=== PATIENT | male | born 1990 | race Hispanic/Latino ===

== ENCOUNTER 2017-08-29 04:17 | Emergency (ER) | payer SELFPAY ==
[2017-08-29 05:26] LABS: Absolute Lymphocytes (CBC) 0.8 K/uL (0.7-4.9); Absolute Monocytes 0.6 K/uL (0.1-1.3); Absolute Neutrophil 10.1 K/uL (1.8-8.0); Basophils % 0.3 % (0-1.3); Eosinophils % 0.6 % (0-4.4); Hematocrit 45.7 % (39.6-49.0); MCH 30.4 pg (27.0-35.0); MCV 90.7 fL (80-100); MPV 8.6 fL (7.6-11.3); Monocytes % 4.8 % (3.3-12.3); RBC Red Blood Cell Count 5.03 M/uL (4.33-5.43)
[2017-08-29] MEDS ORDERED: ONDANSETRON 4 MG/2 ML VIAL ONE (05:35)
[2017-08-29 05:39] LABS: Bicarbonate 23 mEq/L (21-31); Glucose Level 123 mg/dL (65-120); Lipase 28 U/L (22-51); Sodium Level 138 mEq/L (135-145)
[2017-08-29 05:45] LABS: ALT/SGPT 44 IU/L (10-60); AST/SGOT 43 IU/L (10-42); Albumin 4.6 g/dL (3.2-5.5); Alkaline Phosphatase 116 IU/L (42-121); Amylase Level 95 U/L (28-100); BUN Blood Urea Nitrogen 16 mg/dL (6-20); Bilirubin Direct 0.1 mg/dL (0-0.2); Bilirubin Total 0.8 mg/dL (0.3-1.2); Protein, Total 8.3 g/dL (6.0-8.3)
[2017-08-29] MEDS ORDERED: NA CHLORIDE 0.9% 1,000 ML ONE (06:27)
[2017-08-29] MEDS ORDERED: DICYCLOMINE HCL 10 MG CAP ONE (06:27)
[2017-08-29 06:46] LABS: Blood Morphology Comment NOT SEEN (NOT SEEN); Platelet Estimate ADEQ
[2017-08-29 08:03] LABS: Urine Bacteria <20 /HPF (NONE SEEN); Urine Culture Reflex Order NOT NEEDED; Urine RBC <5 /HPF (NONE SEEN)
[2017-08-29 08:04] LABS: Urine Blood NEGATIVE (NEG); Urine Glucose NEGATIVE (NEG); Urine Protein NEGATIVE (NEG); Urine Specific Gravity 1.025 (1.005-1.030); Urine pH 5.5 (5.0-7.0)
--- NOTE | 2017-08-29 09:07 | RAD REPORT ---
EXAM DESCRIPTION: CT - Abdomen Pelvis W Contrast - 08/29/2017 8:59 am CLINICAL HISTORY: Abdominal pain, epigastric pain, diarrhea and vomiting COMPARISON: None. TECHNIQUE: Biphasic, helical CT imaging of the abdomen and pelvis was performed following 100 ml non -ionic IV contrast. Oral contrast was given. All CT scans are performed using dose optimization technique as appropriate and may include automated exposure control or mA/KV adjustment according to patient size. FINDINGS: No suspicious findings in the lung bases. No focal liver abnormality. Liver shows a mild diffuse fatty infiltration. Spleen and pancreas show n o suspicious findings. Gallbladder and biliary tree are also without suspicious finding. Symmetric renal function is seen with no hydronephrosis or suspicious renal mass. No pyelonephritis o r acute renal parenchymal process. Partially filled urinary bladder shows no suspicious findings. Pro state gland and seminal vesicles are normal range. No adrenal abnormality. Stomach is well filled by the ingested oral contrast. Small amount of contrast in the esophagus could be reflux. A primary or acute GI process is not suspected. Most of the oral contrast is retained wit hin the stomach. There is contrast throughout the small bowel and colon that is diluted by bowel cont ent. Prominent small bowel loops are present primarily in the jejunum. No focal colon process seen. A few small nonspecific mesenteric lymph nodes are seen. No free air, free fluid or inflammatory stranding. No mass or bulky lymphadenopathy. No omental thic kening. Patient has a very small umbilical hernia and a minimal amount of fat extending into each ing uinal canal. No suspicious bony findings. IMPRESSION: Mild small bowel enteritis pattern. No obstruction, free air or surgically emergent find ing. Mild fatty infiltration of the liver.
--- NOTE | 2017-08-29 09:46 | EDPHYS ---
Physician Documentation [facility] Name: Young Hernandez Jr Age: 27 yrs Sex: Male : 1990 Arrival Date: 08/29/2017 Time: 04:19 Bed 13 Private MD: ED Physician Surendra Hankins HPI: 08/29 06:30 This 27 yrs old Male presents to ER via Ambulatory with complaints of cp Vomiting/Diarrhea. Historical: - Allergies: 04:49 No Known Allergies; ea - Home Meds: 04:49 Nexium Oral [Active]; ea - PMHx: 04:49 None; ea - PSHx: 04:49 surgery on right wrist; ea - Immunization history:: Adult Immunizations up to date. - Social history:: Smoking status: Patient uses tobacco products, denies chronic smoking, but will smoke occasionally. - Ebola Screening: : No symptoms or risks identified at this time. Exam: 06:25 ECG was reviewed by the Attending Physician. cp 06:40 Constitutional: The patient appears in no acute distress, alert, awake, non-toxic, well cp developed, well nourished. 06:40 Head/Face: Normocephalic, atraumatic. cp Vital Signs: 04:29 BP 135 / 84; Pulse 85; Resp 18 S; Temp 97.6(O); Pulse Ox 97% on R/A; Weight 90.72 kg; ea Height 5 ft. 7 in. (170.18 cm); Pain 0/10; 05:57 BP 122 / 82; Pulse 74; Resp 18; Pulse Ox 98% on R/A; Pain 9/10; ea 06:50 BP 122 / 80; Pulse 79; Resp 19; Pulse Ox 99% on R/A; mw2 09:00 BP 117 / 65; Pulse 64; Resp 18; Pulse Ox 100% on R/A; ae1 10:00 BP 125 / 86; Pulse 72; Resp 18; Pulse Ox 100% on R/A; ae1 04:29 Body Mass Index 31.32 (90.72 kg, 170.18 cm) ea MDM: 05:04 Patient medically screened. tw4 08/29 05:00 Order name: Amylase, Serum; Complete Time: 06:24 tw4 08/29 05:00 Order name: Basic Metabolic Panel; Complete Time: 06:24 tw4 08/29 06:24 Interpretation: Normal except: GLUC 123. cp 08/29 05:00 Order name: CBC with Diff; Complete Time: 06:57 tw4 08/29 06:25 Interpretation: Normal except: WBC 11.5; MICHELE% 87.3; LYM% 7.0; NEUT A 10.1. cp 08/29 05:00 Order name: Creatinine for Radiology; Complete Time: 06:24 tw4 08/29 05:00 Order name: Hepatic Function; Complete Time: 06:24 tw4 08/29 06:25 Interpretation: Normal except: SGOT 43; GLOB 3.7. cp 08/29 05:00 Order name: Lipase; Complete Time: 06:24 tw4 08/29 05:00 Order name: Urine Microscopic Only; Complete Time: 09:11 tw4 08/29 05:34 Order name: Manual Differential; Complete Time: 06:57 EDMS 08/29 06:26 Order name: CT Abd/Pelvis - W/Contrast; Complete Time: 09:11 cp 08/29 07:43 Order name: Urine Dipstick--Ancillary (enter results) bd 08/29 07:43 Order name: Urine Dipstick-Ancillary; Complete Time: 09:11 EDMS 08/29 05:00 Order name: IV Saline Lock; Complete Time: 05:11 tw4 08/29 05:00 Order name: Labs collected and sent; Complete Time: 05:43 tw4 08/29 05:00 Order name: Urine Dipstick-Ancillary (obtain specimen); Complete Time: 07:43 tw4 08/29 08:01 Order name: EKG Electrocardiogram EDMS 08/29 09:12 Order name: PO challenge; Complete Time: 09:42 cp EC:25 Rate is 76 beats/min. Rhythm is regular. NH interval is normal. QRS interval is normal. cp QT interval is normal. T waves are Inverted in lead III. Interpreted by me. Reviewed by me. Administered Medications: 05:39 Drug: Zofran 4 mg Route: IVP; Site: right antecubital; ea 06:29 Follow up: Response: No adverse reaction; Marked relief of symptoms ea 06:29 Drug: NS 0.9% 1000 ml Route: IV; Rate: 1 bolus; Site: right antecubital; ea 07:15 Follow up: IV Status: Completed infusion ae1 06:29 Drug: Bentyl 20 mg Route: PO; ea 07:15 Follow up: Response: Pain is decreased ae1 Disposition: 08/29/17 09:46 Discharged to Home. Impression: Nausea and vomiting, Diarrhea, unspecified. - Condition is Stable. - Discharge Instructions: Food Choices to Help Relieve Diarrhea, Adult, Diarrhea, Nausea and Vomiting. - Prescriptions for Bentyl 20 mg Oral Tablet - take 2 tablets by ORAL route every 6 hours As needed; 30 tablet. Zofran 4 mg Oral Tablet - take 1 tablet by ORAL route every 12 hours As needed; 20 tablet. - Medication Reconciliation Form, Thank You Letter, Antibiotic Education, Prescription Opioid Use, Work release form, Family Work Release form. - Follow up: Private Physician; When: 2 - 3 days; Reason: Recheck today's complaints. - Problem is new. - Symptoms have improved. Addendum: 08/30/2017 22:52 Co-signature as Attending Physician, Surendra Hankins MD I agree with the assessment and t w4 plan of care. Signatures: Dispatcher [employer] EDMS Randy Rossi PA PA cp Romeo Oliver RN RN ae1 Beverly Ferreira RN RN Surendra Rivas MD MD tw4 Corrections: (The following items were deleted from the chart) 08/29 10:02 09:46 08/29/2017 09:46 Discharged to Home. Impression: Nausea and vomiting; Diarrhea, ae1 unspecified. Condition is Stable. Forms are Medication Reconciliation Form, Thank You Letter, Antibiotic Education, Prescription Opioid Use. Follow up: Private Physician; When: 2 - 3 days; Reason: Recheck today's complaints. Problem is new. Symptoms have improved. cp
--- NOTE | 2017-08-29 09:46 | ER ---
Nurse's Notes [facility] Name: Young Hernandez Jr Age: 27 yrs Sex: Male : 1990 Arrival Date: 08/29/2017 Time: 04:19 Bed 13 Private MD: Diagnosis: Nausea and vomiting;Diarrhea, unspecified Presentation: 08/29 04:39 Presenting complaint: Patient states: Reports he woke at 1 am cramping, epigastric, ea having diarrhea and vomiting. Pt reports he is not able to tolerate food or drink. Transition of care: patient was not received from another setting of care. Onset of symptoms was August 29, 2017. Risk Assessment: Do you want to hurt yourself or someone else? Patient reports no desire to harm self or others. Initial Sepsis Screen: Does the patient meet any 2 criteria? No. Patient's initial sepsis screen is negative. Does the patient have a suspected source of infection? No. Patient's initial sepsis screen is negative. Care prior to arrival: None. 04:39 Method Of Arrival: Ambulatory ea 04:39 Acuity: MARELY 3 ea Triage Assessment: 04:49 General: Appears. General: Behavior is calm, cooperative, appropriate for age. Pain: ea Complains of pain in epigastric area Pain radiates to right upper quadrant and left upper quadrant Pain currently is 7 out of 10 on a pain scale. EENT: No signs and/or symptoms were reported regarding the EENT system. Neuro: Level of Consciousness is awake, alert, obeys commands, Oriented to person, place, time, situation. Cardiovascular: Patient's skin is warm and dry. Respiratory: Airway is patent Respiratory effort is even, unlabored, Respiratory pattern is regular, symmetrical. GI: Abdomen is non-distended, Bowel sounds present X 4 quads. Abd is soft X 4 quads Abdomen is tender to palpation in epigastric area Reports diarrhea, vomiting, since 1 am. : No signs and/or symptoms were reported regarding the genitourinary system. Derm: Skin is pink, warm \T\ dry. Musculoskeletal: No signs and/or symptoms reported regarding the musculoskeletal system. Historical: - Allergies: 04:49 No Known Allergies; ea - Home Meds: 04:49 Nexium Oral [Active]; ea - PMHx: 04:49 None; ea - PSHx: 04:49 surgery on right wrist; ea - Immunization history:: Adult Immunizations up to date. - Social history:: Smoking status: Patient uses tobacco products, denies chronic smoking, but will smoke occasionally. - Ebola Screening: : No symptoms or risks identified at this time. Screenin:53 Abuse screen: Denies threats or abuse. Nutritional screening: No deficits noted. ea Tuberculosis screening: No symptoms or risk factors identified. Fall Risk None identified. Assessment: 05:58 Reassessment: Patient and/or family updated on plan of care and expected duration. Pain ea level reassessed. Patient is alert, oriented x 3, equal unlabored respirations, skin warm/dry/pink. Pt complaining of abd pain, reports it feels like cramping in his abdomen, pain 9/10, physician notified, no new orders obtained at this time. 06:46 Reassessment: Patient and/or family updated on plan of care and expected duration. Pain ea level reassessed. Patient is alert, oriented x 3, equal unlabored respirations, skin warm/dry/pink. Pt reports nausea medication helped with symptoms. Tolerated PO fluids well. 07:11 Reassessment: Patient appears in no apparent distress at this time. Patient and/or ae1 family updated on plan of care and expected duration. Pain level reassessed. Encouraged patient to continue drinking PO contrast, provided patient teaching on wait time to got to CT after completion of PO contrast. Also encouraged to provide urine sample, patient states he is unable to urinate at this time. Patient verbalized understanding. 07:23 Reassessment: Patient completed PO contrast, CT notified via telephone. ae1 09:42 Reassessment: Provider at bedside discussing plan of care. PO fluids provided. ae1 Vital Signs: 04:29 BP 135 / 84; Pulse 85; Resp 18 S; Temp 97.6(O); Pulse Ox 97% on R/A; Weight 90.72 kg; ea Height 5 ft. 7 in. (170.18 cm); Pain 0/10; 05:57 BP 122 / 82; Pulse 74; Resp 18; Pulse Ox 98% on R/A; Pain 9/10; ea 06:50 BP 122 / 80; Pulse 79; Resp 19; Pulse Ox 99% on R/A; mw2 09:00 BP 117 / 65; Pulse 64; Resp 18; Pulse Ox 100% on R/A; ae1 10:00 BP 125 / 86; Pulse 72; Resp 18; Pulse Ox 100% on R/A; ae1 04:29 Body Mass Index 31.32 (90.72 kg, 170.18 cm) ea ED Course: 04:19 Patient arrived in ED. ds1 04:35 Beverly Ferreira, PRASHANTH is Primary Nurse. ea 04:39 Patient has correct armband on for positive identification. Placed in gown. Bed in low ea position. Call light in reach. Side rails up X 1. 04:39 Arm band placed on right wrist. Patient placed in an exam room, on a stretcher, on ea pulse oximetry. 04:48 Triage completed. ea 04:59 Surendra Hankins MD is Attending Physician. tw4 06:13 Randy Rossi PA is PHCP. cp 06:13 Surendra Hankins MD is Attending Physician. cp 08:[address] via wheelchair. nj 08:59 CT completed. Patient tolerated procedure well. Patient moved back from CT. nj 08:59 CT Abd/Pelvis - W/Contrast In Process Unspecified. EDMS 10:00 No provider procedures requiring assistance completed. IV discontinued, intact, ae1 bleeding controlled, No redness/swelling at site. Pressure dressing applied. Administered Medications: 05:39 Drug: Zofran 4 mg Route: IVP; Site: right antecubital; ea 06:29 Follow up: Response: No adverse reaction; Marked relief of symptoms ea 06:29 Drug: NS 0.9% 1000 ml Route: IV; Rate: 1 bolus; Site: right antecubital; ea 07:15 Follow up: IV Status: Completed infusion ae1 06:29 Drug: Bentyl 20 mg Route: PO; ea 07:15 Follow up: Response: Pain is decreased ae1 Outcome: 09:46 Discharge ordered by . cp 10:00 Discharged to home ambulatory, with significant other. ae1 10:00 Condition: stable 10:00 Discharge instructions given to patient, Instructed on discharge instructions, follow up and referral plans. medication usage, Demonstrated understanding of instructions, Prescriptions given X 2. 10:02 Patient left the ED. ae1 Signatures: Dispatcher [employer] EDMT DaltonCheli carmen ds1 Randy Rossi PA PA cp Elliott, Andrea, RN RN ae1 [place] Elena RN RN Surendra Rivas MD MD tw4 Karyn Cavanaugh mw2 Corrections: (The following items were deleted from the chart) 06:47 06:46 Reassessment: Patient and/or family updated on plan of care and expected ea duration. Pain level reassessed. Patient is alert, oriented x 3, equal unlabored respirations, skin warm/dry/pink. Pt reports nausea medication helped with symptoms. ea 07:14 07:11 Reassessment: Patient appears in no apparent distress at this time. Patient ae1 and/or family updated on plan of care and expected duration. Pain level reassessed. Encouraged patient to continue drinking PO contrast, provided patient teaching on wait time to got to CT after completion of PO contrast. Patient verbalized understanding. ae1
--- NOTE | 2017-08-29 13:40 | EKG ---
Test Date: 2017-08-29 Test Time: 06:05:14 [employer] Contractor: MISA MEASUREMENT RESULTS: Intervals: Rate: 76 TN: 148 QRSD: 80 QT: 374 QTc: 420 Eustace: P: 11 TN: 148 QRS: 36 T: 8 INTERPRETIVE STATEMENTS: Normal sinus rhythm Cannot rule out Anterior infarct, age undetermined Abnormal ECG No previous ECG available for comparison Electronically Signed On 08-29-17 13:40:02 CDT by Tato Sweet
== END 2017-08-29 10:02 | disposition home or self-care (01) ==
LOC: ER 04:17
DX: R19.7 Diarrhea, unspecified (principal); Z72.0 Tobacco use
CPT/HCPCS: 36415; 74177; 80048; 80076; 81003; 81015; 82150; 83690; 85025; 93005; 96361; 96374; 99284; J2405; J7030; Q9967

== ENCOUNTER 2017-11-11 20:34 | Emergency (ER) | payer SELFPAY ==
--- NOTE | 2017-11-11 22:30 | ER ---
Nurse's Notes [facility] Name: Young Hernandez Jr Age: 27 yrs Sex: Male : 1990 Arrival Date: 11/11/2017 Time: 20:35 Bed 23 Private MD: Diagnosis: Pain in left knee;Rash and other nonspecific skin eruption Presentation: 11/11 20:45 Presenting complaint: Patient states: He has had a rash on his chest for a week, and aj1 left knee pain x 2 day. States he was wrestling with his brother in law 2 days ago and that how he injured the knee. Limited ROM noted to left knee. Transition of care: patient was not received from another setting of care. Onset of symptoms was October 2017. Risk Assessment: Do you want to hurt yourself or someone else? Patient reports no desire to harm self or others. Initial Sepsis Screen: Does the patient meet any 2 criteria? No. Patient's initial sepsis screen is negative. Does the patient have a suspected source of infection? No. Patient's initial sepsis screen is negative. Care prior to arrival: None. 20:45 Method Of Arrival: Ambulatory aj1 20:45 Acuity: MARELY 4 aj1 Triage Assessment: 20:48 General: Appears in no apparent distress. comfortable, Behavior is calm, cooperative, aj1 appropriate for age. Pain: Complains of pain in left knee Pain currently is 5 out of 10 on a pain scale. Neuro: Level of Consciousness is awake, alert, obeys commands. Cardiovascular: Patient's skin is warm and dry. Respiratory: Airway is patent Respiratory effort is even, unlabored, Respiratory pattern is regular, symmetrical. Derm: Rash noted that is itchy, red, raised, on chest and neck. Historical: - Allergies: 20:48 No Known Allergies; aj1 - Home Meds: 20:48 Nexium Oral [Active]; aj1 - PMHx: 20:48 GERD; aj1 - Immunization history:: Flu vaccine is not up to date. - Social history:: Smoking status: Patient uses tobacco products, denies chronic smoking, but will smoke occasionally. - Ebola Screening: : Patient denies travel to an Ebola-affected area in the 21 days before illness onset. Screenin:40 Abuse screen: Denies threats or abuse. Nutritional screening: No deficits noted. tl3 Tuberculosis screening: No symptoms or risk factors identified. Fall Risk None identified. Assessment: 21:40 General: Appears uncomfortable, well groomed, well developed, well nourished. Neuro: tl3 Level of Consciousness is awake, alert, obeys commands, Oriented to person, place, time, situation, Appropriate for age. Cardiovascular: Patient's skin is warm and dry. Respiratory: Airway is patent Respiratory effort is even, unlabored, Respiratory pattern is regular, symmetrical. GI: No deficits noted. No signs and/or symptoms were reported involving the gastrointestinal system. : No deficits noted. No signs and/or symptoms were reported regarding the genitourinary system. EENT: No deficits noted. No signs and/or symptoms were reported regarding the EENT system. Derm: No deficits noted. No signs and/or symptoms reported regarding the dermatologic system. Musculoskeletal: No deficits noted. No signs and/or symptoms reported regarding the musculoskeletal system. 22:53 Reassessment: Patient appears in no apparent distress at this time. No changes from tl3 previously documented assessment. Patient and/or family updated on plan of care and expected duration. Pain level reassessed. Patient is alert, oriented x 3, equal unlabored respirations, skin warm/dry/pink. Vital Signs: 20:48 BP 148 / 97; Pulse 87; Resp 18; Temp 97.2; Pulse Ox 99% on R/A; Weight 97.52 kg (R); aj1 Height 5 ft. 7 in. (170.18 cm) (R); Pain 5/10; 22:53 BP 136 / 89; Pulse 84; Resp 18; Pulse Ox 98% ; tl3 20:48 Body Mass Index 33.67 (97.52 kg, 170.18 cm) aj1 ED Course: 20:35 Patient arrived in ED. am2 20:47 Triage completed. aj1 20:48 Christi Sanchez FNP-C [facility]. snw 20:48 Arm band placed on Patient placed in waiting room, Patient notified of wait time. aj1 20:49 Ever Pinzon MD is Attending Physician. snw 21:40 Patient has correct armband on for positive identification. Bed in low position. tl3 21:40 No provider procedures requiring assistance completed. tl3 22:02 Allie Diaz, PRASHANTH is Primary Nurse. tl3 22:04 X-ray(s) taken. tl3 22:08 X-ray completed. Portable x-ray completed in exam room. Patient tolerated procedure bb2 well. 22:10 Knee Left 3 View XRAY In Process Unspecified. EDMS 22:26 Terence Vicente MD is Referral Physician. snw 22:53 Patient did not have IV access during this emergency room visit. tl3 Administered Medications: 22:45 Drug: [place] 5 mg-325 mg 1 tabs Route: PO; tl3 22:52 Follow up: Response: Medication administered at discharge. tl3 Outcome: 22:29 Discharge ordered by . snw 22:53 Discharged to home ambulatory. tl3 22:53 Condition: stable 22:53 Discharge instructions given to patient, Instructed on discharge instructions, follow up and referral plans. medication usage, Demonstrated understanding of instructions, follow-up care, medications, Prescriptions given X 1. 22:54 Patient left the ED. tl3 Signatures: Dispatcher [employer] EDSC Ana Hilton RN RN aj1 Christi Sanchez, STEAM BOX OPERATOR-C STEAM BOX OPERATOR-Csnw Juanita Padilla am2 Lisbeth Cody bb2 Allie Diaz RN RN tl3
--- NOTE | 2017-11-11 22:30 | EDPHYS ---
Physician Documentation [facility] Name: Young Hernandez Jr Age: 27 yrs Sex: Male : 1990 Arrival Date: 11/11/2017 Time: 20:35 Bed 23 Private MD: ED Physician Ever Pinzon HPI: 11/11 22:05 This 27 yrs old Male presents to ER via Ambulatory with complaints of Knee snw Pain, Rash - on chest/neck. 22:05 Onset: The symptoms/episode began/occurred suddenly, 3 day(s) ago. The patient has not snw experienced similar symptoms in the past. The patient has not recently seen a physician. Historical: - Allergies: 20:48 No Known Allergies; aj1 - Home Meds: 20:48 Nexium Oral [Active]; aj1 - PMHx: 20:48 GERD; aj1 - Immunization history:: Flu vaccine is not up to date. - Social history:: Smoking status: Patient uses tobacco products, denies chronic smoking, but will smoke occasionally. - Ebola Screening: : Patient denies travel to an Ebola-affected area in the 21 days before illness onset. ROS: 22:02 Constitutional: Negative for fever, chills, and weight loss, Eyes: Negative for injury, snw pain, redness, and discharge, ENT: Negative for injury, pain, and discharge, Neck: Negative for injury, pain, and swelling, Cardiovascular: Negative for chest pain, palpitations, and edema, Respiratory: Negative for shortness of breath, cough, wheezing, and pleuritic chest pain, Abdomen/GI: Negative for abdominal pain, nausea, vomiting, diarrhea, and constipation, Back: Negative for injury and pain, : Negative for injury, bleeding, discharge, and swelling, Neuro: Negative for headache, weakness, numbness, tingling, and seizure, Psych: Negative for depression, anxiety, suicide ideation, homicidal ideation, and hallucinations. 22:02 MS/extremity: Positive for injury or acute deformity, swelling, tenderness, of the left knee. 22:02 Skin: Positive for rash, of the neck and chest. Exam: 22:02 Constitutional: This is a well developed, well nourished patient who is awake, alert, snw and in no acute distress. Head/Face: Normocephalic, atraumatic. Eyes: Pupils equal round and reactive to light, extra-ocular motions intact. Lids and lashes normal. Conjunctiva and sclera are non-icteric and not injected. Cornea within normal limits. Periorbital areas with no swelling, redness, or edema. ENT: Nares patent. No nasal discharge, no septal abnormalities noted. Tympanic membranes are normal and external auditory canals are clear. Oropharynx with no redness, swelling, or masses, exudates, or evidence of obstruction, uvula midline. Mucous membranes moist. Neck: Trachea midline, no thyromegaly or masses palpated, and no cervical lymphadenopathy. Supple, full range of motion without nuchal rigidity, or vertebral point tenderness. No Meningismus. Chest/axilla: Normal chest wall appearance and motion. Nontender with no deformity. No lesions are appreciated. Cardiovascular: Regular rate and rhythm with a normal S1 and S2. No gallops, murmurs, or rubs. Normal PMI, no JVD. No pulse deficits. Respiratory: Lungs have equal breath sounds bilaterally, clear to auscultation and percussion. No rales, rhonchi or wheezes noted. No increased work of breathing, no retractions or nasal flaring. Abdomen/GI: Soft, non-tender, with normal bowel sounds. No distension or tympany. No guarding or rebound. No evidence of tenderness throughout. Back: No spinal tenderness. No costovertebral tenderness. Full range of motion. Neuro: Awake and alert, GCS 15, oriented to person, place, time, and situation. Cranial nerves II-XII grossly intact. Motor strength 5/5 in all extremities. Sensory grossly intact. Cerebellar exam normal. Normal gait. Psych: Awake, alert, with orientation to person, place and time. Behavior, mood, and affect are within normal limits. 22:02 Musculoskeletal/extremity: ROM: limited active range of motion due to pain, in the left knee, Circulation is intact in all extremities. Pulses: are normal with no appreciated deficits, Joints: All joints are normal except the left knee displays painful range of motion, swelling. 22:02 Skin: Appearance: normal except for affected area, heat rash. Vital Signs: 20:48 BP 148 / 97; Pulse 87; Resp 18; Temp 97.2; Pulse Ox 99% on R/A; Weight 97.52 kg (R); aj1 Height 5 ft. 7 in. (170.18 cm) (R); Pain 5/10; 22:53 BP 136 / 89; Pulse 84; Resp 18; Pulse Ox 98% ; tl3 20:48 Body Mass Index 33.67 (97.52 kg, 170.18 cm) aj1 MDM: 21:46 Patient medically screened. snw 22:31 Data reviewed: vital signs, nurses notes. Data interpreted: Pulse oximetry: on room air snw is 99 %. Interpretation: normal. Counseling: I had a detailed discussion with the patient and/or guardian regarding: the historical points, exam findings, and any diagnostic results supporting the discharge/admit diagnosis, radiology results, the need for outpatient follow up, to return to the emergency department if symptoms worsen or persist or if there are any questions or concerns that arise at home. Special discussion: Based on the history and exam findings, there is no indication for further emergent testing or inpatient evaluation. I discussed with the patient/guardian the need to see the orthopedic surgeon for further evaluation of the symptoms. I discussed with the patient/guardian the need to see the primary care provider for further evaluation of the symptoms. 11/11 21:46 Order name: Knee Left 3 View XRAY snw 11/11 22:45 Order name: Knee Immobilizer; Complete Time: 22:52 snw Administered Medications: 22:45 Drug: Perry 5 mg-325 mg 1 tabs Route: PO; tl3 22:52 Follow up: Response: Medication administered at discharge. tl3 Disposition: 22:57 Co-signature as Attending Physician, Ever Pinzon MD. pkl Disposition: 11/11/17 22:29 Discharged to Home. Impression: Pain in left knee, Rash and other nonspecific skin eruption. - Condition is Stable. - Discharge Instructions: Hypertension, How to Use a Knee Brace, Musculoskeletal Pain, Rash, Knee Pain, Cryotherapy, [id number], Heat Therapy. - Prescriptions for Diclofenac Sodium 75 mg Oral Tablet Sustained Release - take 1 tablet by ORAL route 2 times per day; 30 tablet. - Work release form, Medication Reconciliation Form, Thank You Letter, Antibiotic Education, Prescription Opioid Use form. - Follow up: Private Physician; When: 2 - 3 days; Reason: Recheck today's complaints, Continuance of care, Re-evaluation by your physician. Follow up: Emergency Department; When: As needed; Reason: Worsening of condition. Follow up: Terence Vicente MD; When: 1 week; Reason: Recheck today's complaints, Continuance of care. - Notes: Please use Selsun Blue shampoo for soap and see if rash improves. Stay cool. Signatures: Dispatcher [employer] EDAna Shoemaker, RN RN aj1 Ever Pinzon MD MD pkl Christi Sanchez, APPRENTICE JOCKEY-C APPRENTICE JOCKEY-Csnw Allie Diaz, RN RN tl3 Corrections: (The following items were deleted from the chart) 22:54 22:29 11/11/2017 22:29 Discharged to Home. Impression: Pain in left knee; Rash and tl3 other nonspecific skin eruption. Condition is Stable. Forms are Medication Reconciliation Form, Thank You Letter, Antibiotic Education, Prescription Opioid Use. Follow up: Private Physician; When: 2 - 3 days; Reason: Recheck today's complaints, Continuance of care, Re-evaluation by your physician. Follow up: Emergency Department; When: As needed; Reason: Worsening of condition. Follow up: Dr. Terence Vicente; When: 1 week; Reason: Recheck today's complaints, Continuance of care. snw
[2017-11-11] MEDS ORDERED: HYDROCODONE/APAP 5/325 MG TAB ONE (22:46)
--- NOTE | 2017-11-12 05:31 | RAD REPORT ---
EXAM DESCRIPTION: RAD - Knee Left 3 View - 11/11/2017 10:12 pm CLINICAL HISTORY: Left knee pain status post injury FINDINGS: No fracture or dislocation is seen. If the patient continues have symptoms to suggest an occult fracture, ligamentous or meniscal injury then MRI would be recommend
== END 2017-11-11 22:54 | disposition home or self-care (01) ==
LOC: ER 20:34
DX: R21 Rash and other nonspecific skin eruption (principal); Z72.0 Tobacco use
CPT/HCPCS: 99283

== ENCOUNTER 2017-11-27 13:39 | Emergency (ER) | payer SELFPAY ==
--- NOTE | 2017-11-27 14:28 | EDPHYS ---
Physician Documentation [facility] Name: Young Hernandez Jr Age: 27 yrs Sex: Male : 1990 Arrival Date: 11/27/2017 Time: 13:41 Bed 12 Private MD: ED Physician Paulo Dumont HPI: 11/27 14:25 This 27 yrs old Male presents to ER via Ambulatory with complaints of Knee kb Pain. 14:25 Pt was seen here on 11/11/17 for knee pain, x-rays completed and negative, sent home to kb follow up with ortho/PCP. Pt here today because he needs a physical done to return to work. . The patient has not experienced similar symptoms in the past. The patient has been recently seen at the [facility] Emergency Department, a couple of weeks ago. Pt states he no longer has pain. States he just needs the paperwork filled out so he can go back to work. . Historical: - Allergies: 14:08 No Known Allergies; ss - Home Meds: 14:08 None [Active]; ss - PMHx: 14:08 GERD; ss - PSHx: 14:08 R wrist; ss - Immunization history:: Adult Immunizations up to date. - Social history:: Smoking status: Patient uses tobacco products, denies chronic smoking, but will smoke occasionally. - Ebola Screening: : Patient denies exposure to infectious person Patient denies travel to an Ebola-affected area in the 21 days before illness onset. ROS: 14:25 Constitutional: Negative for fever, chills, and weight loss, Cardiovascular: Negative kb for chest pain, palpitations, and edema, Respiratory: Negative for shortness of breath, cough, wheezing, and pleuritic chest pain, Abdomen/GI: Negative for abdominal pain, nausea, vomiting, diarrhea, and constipation, Back: Negative for injury and pain, : Negative for injury, bleeding, discharge, and swelling, MS/Extremity: Negative for injury and deformity, Skin: Negative for injury, rash, and discoloration, Neuro: Negative for headache, weakness, numbness, tingling, and seizure. Exam: 14:25 Constitutional: This is a well developed, well nourished patient who is awake, alert, kb and in no acute distress. Head/Face: Normocephalic, atraumatic. Chest/axilla: Normal chest wall appearance and motion. Nontender with no deformity. No lesions are appreciated. Cardiovascular: Regular rate and rhythm with a normal S1 and S2. No gallops, murmurs, or rubs. Normal PMI, no JVD. No pulse deficits. Respiratory: Lungs have equal breath sounds bilaterally, clear to auscultation and percussion. No rales, rhonchi or wheezes noted. No increased work of breathing, no retractions or nasal flaring. Abdomen/GI: Soft, non-tender, with normal bowel sounds. No distension or tympany. No guarding or rebound. No evidence of tenderness throughout. Back: No spinal tenderness. No costovertebral tenderness. Full range of motion. Skin: Warm, dry with normal turgor. Normal color with no rashes, no lesions, and no evidence of cellulitis. MS/ Extremity: Pulses equal, no cyanosis. Neurovascular intact. Full, normal range of motion. Neuro: Awake and alert, GCS 15, oriented to person, place, time, and situation. Cranial nerves II-XII grossly intact. Motor strength 5/5 in all extremities. Sensory grossly intact. Cerebellar exam normal. Normal gait. Vital Signs: 14:08 BP 142 / 95; Pulse 76; Resp 14; Temp 97.5(TE); Pulse Ox 98% on R/A; Weight 99.79 kg; ss Height 5 ft. 7 in. (170.18 cm); Pain 0/10; 14:08 Body Mass Index 34.46 (99.79 kg, 170.18 cm) ss MDM: 14:11 Patient medically screened. kb 14:24 Data reviewed: vital signs, nurses notes. Data interpreted: Pulse oximetry: on room air kb is 98 %. Interpretation: normal. Counseling: I had a detailed discussion with the patient and/or guardian regarding: the historical points, exam findings, and any diagnostic results supporting the discharge/admit diagnosis, the need for outpatient follow up, a family practitioner, a orthopedic surgeon, to return to the emergency department if symptoms worsen or persist or if there are any questions or concerns that arise at home. Administered Medications: No medications were administered Disposition: 14:24 Encounter for work physical. kb 16:51 Co-signature as Attending Physician, Paulo Dumont MD. rn Disposition: 11/27/17 14:27 Discharged to Home. Impression: Encounter for screening, unspecified. - Condition is Stable. - Medication Reconciliation Form, Thank You Letter, Antibiotic Education, Prescription Opioid Use form. - Follow up: Emergency Department; When: As needed; Reason: Worsening of condition. Follow up: Private Physician; When: 2 - 3 days; Reason: Recheck today's complaints, Continuance of care, Re-evaluation by your physician. Signatures: Kenyetta Asif, TOMMY-C MEDICAL RECORDS DIRECTOR-Ckb Paulo Dumont MD MD rn Smirch, Shelby, RN RN PradipRachel pham vd2 Corrections: (The following items were deleted from the chart) 14:45 14:27 11/27/2017 14:27 Discharged to Home. Impression: Encounter for screening, vd2 unspecified. Condition is Stable. Forms are Medication Reconciliation Form, Thank You Letter, Antibiotic Education, Prescription Opioid Use. Follow up: Emergency Department; When: As needed; Reason: Worsening of condition. Follow up: Private Physician; When: 2 - 3 days; Reason: Recheck today's complaints, Continuance of care, Re-evaluation by your physician. kb
--- NOTE | 2017-11-27 14:28 | ER ---
Nurse's Notes [facility] Name: Young Hernandez Jr Age: 27 yrs Sex: Male : 1990 Arrival Date: 11/27/2017 Time: 13:41 Bed 12 Private MD: Diagnosis: Encounter for screening, unspecified Presentation: 11/27 14:07 Presenting complaint: Patient states: Pt reports he was seen recently for knee pain (no ss injury), and needs a physical filled out and signed. Transition of care: patient was not received from another setting of care. Onset of symptoms is unknown. Risk Assessment: Do you want to hurt yourself or someone else? Patient reports no desire to harm self or others. Initial Sepsis Screen: Does the patient meet any 2 criteria? No. Patient's initial sepsis screen is negative. Does the patient have a suspected source of infection? No. Patient's initial sepsis screen is negative. Care prior to arrival: None. 14:07 Method Of Arrival: Ambulatory ss 14:07 Acuity: MARELY 5 ss Historical: - Allergies: 14:08 No Known Allergies; ss - Home Meds: 14:08 None [Active]; ss - PMHx: 14:08 GERD; ss - PSHx: 14:08 R wrist; ss - Immunization history:: Adult Immunizations up to date. - Social history:: Smoking status: Patient uses tobacco products, denies chronic smoking, but will smoke occasionally. - Ebola Screening: : Patient denies exposure to infectious person Patient denies travel to an Ebola-affected area in the 21 days before illness onset. Screenin:10 Abuse screen: Denies threats or abuse. Denies injuries from another. Nutritional ss screening: No deficits noted. Tuberculosis screening: Never had TB. Fall Risk None identified. Assessment: 14:10 General: Appears in no apparent distress. comfortable, Behavior is calm, cooperative. ss Pain: Denies pain. Neuro: Level of Consciousness is awake, alert. Cardiovascular: Capillary refill < 3 seconds is brisk in bilateral fingers. Respiratory: Airway is patent Respiratory effort is even, unlabored. EENT: Oral mucosa is moist. Derm: Skin is intact, is healthy with good turgor, Skin is pink, warm \T\ dry. normal. Musculoskeletal: Circulation, motion, and sensation intact. Range of motion: Swelling absent. Vital Signs: 14:08 BP 142 / 95; Pulse 76; Resp 14; Temp 97.5(TE); Pulse Ox 98% on R/A; Weight 99.79 kg; ss Height 5 ft. 7 in. (170.18 cm); Pain 0/10; 14:08 Body Mass Index 34.46 (99.79 kg, 170.18 cm) ED Course: 13:41 Patient arrived in ED. sb2 14:07 Triage completed. ss 14:08 Arm band placed on right wrist. ss 14:10 Patient has correct armband on for positive identification. Bed in low position. Call ss light in reach. 14:10 No provider procedures requiring assistance completed. Patient did not have IV access ss during this emergency room visit. 14:11 Kenyetta Asif FNP-C is [facility]. kb 14:11 Paulo Dumont MD is Attending Physician. kb Administered Medications: No medications were administered Outcome: 14:10 Medical screen evaluation completed per provider. ss 14:10 Condition: good 14:10 Instructed on follow up and referral plans. 14:27 Discharge ordered by . kb 14:45 Patient left the ED. vd2 Signatures: Kenyetta Asif FNP-C FNP-Ckb Smirch, Shelby, RN RN Pradipalice [facility] medical centerRachel vd2 Evy Tate sb2
== END 2017-11-27 14:45 | disposition home or self-care (01) ==
LOC: ER 13:39
DX: Z13.9 Encounter for screening, unspecified (principal); Z72.0 Tobacco use
CPT/HCPCS: 99281

== ENCOUNTER 2018-05-30 04:28 | Emergency (ER) | payer SELFPAY ==
[2018-05-30] MEDS ORDERED: LIDOCAINE 1% MPF 5 ML VIAL ONE (05:16)
--- NOTE | 2018-05-30 05:41 | EDPHYS ---
Physician Documentation [facility] Name: Young Hernandez Jr Age: 28 yrs Sex: Male : 1990 Arrival Date: 05/30/2018 Time: 04:29 Bed 20 Private MD: Randy Garcia HPI: 05/30 05:02 This 28 yrs old Male presents to ER via Wheelchair with complaints of Lip marcus Injury, Fall Injury, Ankle Injury. 05:02 The patient presents with pain. The problem is located in the face. Onset: The marcus symptoms/episode began/occurred just prior to arrival. Duration: The symptoms are continuous. Associated signs and symptoms: The patient has no apparent associated signs or symptoms. Severity of symptoms: At their worst the symptoms were. Historical: - Allergies: 04:44 No Known Allergies; jd3 - Home Meds: 04:44 Nexium Oral [Active]; jd3 - PMHx: 04:44 GERD; jd3 - PSHx: 04:44 R wrist; jd3 - Immunization history:: Adult Immunizations up to date, Last tetanus immunization: < 5 years ago. - Social history:: Smoking status: Patient uses tobacco products, denies chronic smoking, but will smoke occasionally. - Ebola Screening: : Patient negative for fever greater than or equal to 101.5 degrees Fahrenheit, and additional compatible Ebola Virus Disease symptoms. ROS: 05:02 Constitutional: Negative for fever, chills, and weight loss, Eyes: Negative for injury, marcus pain, redness, and discharge, Neck: Negative for injury, pain, and swelling, Cardiovascular: Negative for chest pain, palpitations, and edema, Respiratory: Negative for shortness of breath, cough, wheezing, and pleuritic chest pain, Abdomen/GI: Negative for abdominal pain, nausea, vomiting, diarrhea, and constipation, Back: Negative for injury and pain, : Negative for injury, bleeding, discharge, and swelling, Skin: Negative for injury, rash, and discoloration, Neuro: Negative for headache, weakness, numbness, tingling, and seizure, Psych: Negative for depression, anxiety, suicide ideation, homicidal ideation, and hallucinations, Allergy/Immunology: Negative for hives, rash, and allergies, Endocrine: Negative for neck swelling, polydipsia, polyuria, polyphagia, and marked weight changes, Hematologic/Lymphatic: Negative for swollen nodes, abnormal bleeding, and unusual bruising. 05:02 ENT: Positive for injury or acute deformity, laceration. 05:02 MS/extremity: Positive for decreased range of motion, pain, swelling, tenderness, of the lateral aspect of right calf, right ankle and anterior aspect of right ankle. Exam: 05:02 Constitutional: This is a well developed, well nourished patient who is awake, alert, marcus and in no acute distress. Head/Face: Normocephalic, atraumatic. Eyes: Pupils equal round and reactive to light, extra-ocular motions intact. Lids and lashes normal. Conjunctiva and sclera are non-icteric and not injected. Cornea within normal limits. Periorbital areas with no swelling, redness, or edema. ENT: Nares patent. No nasal discharge, no septal abnormalities noted. Tympanic membranes are normal and external auditory canals are clear. Oropharynx with no redness, swelling, or masses, exudates, or evidence of obstruction, uvula midline. Mucous membranes moist. Neck: Trachea midline, no thyromegaly or masses palpated, and no cervical lymphadenopathy. Supple, full range of motion without nuchal rigidity, or vertebral point tenderness. No Meningismus. Chest/axilla: Normal chest wall appearance and motion. Nontender with no deformity. No lesions are appreciated. Cardiovascular: Regular rate and rhythm with a normal S1 and S2. No gallops, murmurs, or rubs. Normal PMI, no JVD. No pulse deficits. Respiratory: Lungs have equal breath sounds bilaterally, clear to auscultation and percussion. No rales, rhonchi or wheezes noted. No increased work of breathing, no retractions or nasal flaring. Abdomen/GI: Soft, non-tender, with normal bowel sounds. No distension or tympany. No guarding or rebound. No evidence of tenderness throughout. Back: No spinal tenderness. No costovertebral tenderness. Full range of motion. Male : Normal genitalia with no discharge or lesions. MS/ Extremity: Pulses equal, no cyanosis. Neurovascular intact. Full, normal range of motion. Neuro: Awake and alert, GCS 15, oriented to person, place, time, and situation. Cranial nerves II-XII grossly intact. Motor strength 5/5 in all extremities. Sensory grossly intact. Cerebellar exam normal. Normal gait. Psych: Awake, alert, with orientation to person, place and time. Behavior, mood, and affect are within normal limits. Vital Signs: 04:32 BP 125 / 96; Pulse 109; Resp 19 S; Temp 99.2(O); Pulse Ox 98% on R/A; Weight 106.59 kg cc3 (R); Height 5 ft. 7 in. (170.18 cm) (R); Pain 7/10; 05:38 BP 118 / 69; Pulse 92; Resp 16 S; Pulse Ox 97% on R/A; jd3 04:32 Body Mass Index 36.81 (106.59 kg, 170.18 cm) cc3 [place] Coma Score: 04:32 Eye Response: spontaneous(4). Verbal Response: oriented(5). Motor Response: obeys cc3 commands(6). Total: 15. Trauma Score (Adult): 04:32 Eye Response: spontaneous(1); Verbal Response: oriented(1); Motor Response: obeys cc3 commands(2); Systolic BP: > 89 mm Hg(4); Respiratory Rate: 10 to 29 per min(4); [place] Score: 15; Trauma Score: 12 Laceration: 05:02 Wound Repair of 1cm ( 0.4in ) subcutaneous laceration to face. Linear shaped.. Distal marcus neuro/vascular/tendon intact. Anesthesia: Local anesthetic administered with 5 mls of 1% lidocaine. Wound prep: Simple cleansing with betadine by md. Skin closed with 4 5-0 2 vicryl inside mucosa using simple sutures and sterile technique. Dressed with Neosporin. MDM: 04:33 Patient medically screened. [facility] 05:13 Data reviewed: vital signs, nurses notes, radiologic studies. [facility] 05/30 04:55 Order name: XRAY Ankle RIGHT 3 view [facility] 05/30 05:01 Order name: Tib Fib Right XRAY [facility] 05/30 05:01 Order name: Foot Right 3 View XRAY [facility] 05/30 04:55 Order name: Dressing - Wound; Complete Time: 05:36 [facility] 05/30 04:55 Order name: Gloves, Sterile; Complete Time: 04:55 [facility] 05/30 04:55 Order name: Setup Suture Tray; Complete Time: 04:55 [facility] 05/30 05:01 Order name: Vicryl, Sutures; Complete Time: 05:35 [facility] 05/30 05:01 Order name: Prolene, Sutures; Complete Time: 05:36 [facility] 05/30 05:07 Order name: Ice pack; Complete Time: 05:08 [facility] 05/30 05:35 Order name: Walking boot; Complete Time: 05:48 [facility] Administered Medications: 05:07 Not Given (Physician Discretion): Tetanus-Diphtheria Toxoid Adult 0.5 ml IM once jd3 05:35 Drug: Lidocaine (1 %) 5 ml Volume: 5 ml; Route: Infiltration; jd3 05:52 Follow up: Response: No adverse reaction jd3 05:51 Drug: Augmentin 875 mg Route: PO; jd3 05:52 Follow up: Response: Medication administered at discharge. jd3 Disposition: 05/30/18 05:40 Discharged to Home. Impression: Sprain of ankle, Sprain of foot, Laceration without foreign body of other part of head - face. - Condition is Stable. - Discharge Instructions: Ankle Sprain, Foot Sprain, Mouth Laceration, Facial Laceration, Mouth Laceration, [id number]. - Prescriptions for Augmentin 875- 125 mg Oral Tablet - take 1 tablet by ORAL route every 12 hours for 7 days; 14 tablet. Tylenol- Codeine #3 300-30 mg Oral Tablet - take 2 tablet by ORAL route every 6 hours As needed; 30 tablet. - Medication Reconciliation Form, Thank You Letter, Antibiotic Education, Prescription Opioid Use form. - Follow up: Private Physician; When: 2 - 3 days; Reason: Recheck today's complaints, Continuance of care, Re-evaluation by your physician. Follow up: Walter Kern MD; When: 2 - 3 days; Reason: Recheck today's complaints, Re-evaluation by your physician. - Problem is new. - Symptoms have improved. Signatures: Dispatcher [employer] EDMS Randy Washington MD MD cha Davies, Jonathon RN RN jd3 Corrections: (The following items were deleted from the chart) 05:59 05:40 05/30/2018 05:40 Discharged to Home. Impression: Sprain of ankle; Sprain of foot; jd3 Laceration without foreign body of other part of head - face. Condition is Stable. Forms are Medication Reconciliation Form, Thank You Letter, Antibiotic Education, Prescription Opioid Use. Follow up: Private Physician; When: 2 - 3 days; Reason: Recheck today's complaints, Continuance of care, Re-evaluation by your physician. Follow up: Walter Kern; When: 2 - 3 days; Reason: Recheck today's complaints, Re-evaluation by your physician. Problem is new. Symptoms have improved. marcus
--- NOTE | 2018-05-30 05:41 | ER ---
Nurse's Notes [facility] Name: Young Hernandez Jr Age: 28 yrs Sex: Male : 1990 Arrival Date: 05/30/2018 Time: 04:29 Bed 20 Private MD: Diagnosis: Sprain of ankle;Sprain of foot;Laceration without foreign body of other part of head-face Presentation: 05/30 04:41 Presenting complaint: Patient states: "I have had a lot to drink tonight and I fell in jd3 my front yard. I twisted and hurt my ankle when I fell as well ask scrapping up my left elbow and my tooth went through my lip.". Transition of care: patient was not received from another setting of care. Onset of symptoms was May 30, 2018. Risk Assessment: Do you want to hurt yourself or someone else? Patient reports no desire to harm self or others. Initial Sepsis Screen: Does the patient meet any 2 criteria? No. Patient's initial sepsis screen is negative. Does the patient have a suspected source of infection? No. Patient's initial sepsis screen is negative. Care prior to arrival: None. 04:41 Method Of Arrival: Wheelchair jd3 04:41 Acuity: MARELY 3 jd3 Historical: - Allergies: 04:44 No Known Allergies; jd3 - Home Meds: 04:44 Nexium Oral [Active]; jd3 - PMHx: 04:44 GERD; jd3 - PSHx: 04:44 R wrist; jd3 - Immunization history:: Adult Immunizations up to date, Last tetanus immunization: < 5 years ago. - Social history:: Smoking status: Patient uses tobacco products, denies chronic smoking, but will smoke occasionally. - Ebola Screening: : Patient negative for fever greater than or equal to 101.5 degrees Fahrenheit, and additional compatible Ebola Virus Disease symptoms. Screenin:32 Abuse screen: Denies threats or abuse. Denies injuries from another. Nutritional cc3 screening: No deficits noted. Tuberculosis screening: No symptoms or risk factors identified. Fall Risk Ambulatory Aid- None/Bed Rest/Nurse Assist (0 pts). Gait- Normal/Bed Rest/Wheelchair (0 pts) Mental Status- Oriented to own ability (0 pts). Assessment: 04:44 General: Appears in no apparent distress. uncomfortable, Behavior is calm, cooperative, jd3 appropriate for age, Smells of alcohol. Pain: Complains of pain in mouth and right ankle Quality of pain is described as aching, sharp, tender. Neuro: Level of Consciousness is awake, alert, obeys commands, Oriented to person, place, time, situation, Appropriate for age. Cardiovascular: Capillary refill < 3 seconds Patient's skin is warm and dry. Respiratory: Airway is patent Respiratory effort is even, unlabored, Respiratory pattern is regular, symmetrical. GI: No signs and/or symptoms were reported involving the gastrointestinal system. : No signs and/or symptoms were reported regarding the genitourinary system. EENT: No signs and/or symptoms were reported regarding the EENT system. Derm: Skin is intact, Skin is dry, Skin is normal, Skin temperature is warm. Musculoskeletal: Circulation, motion, and sensation intact. Range of motion: limited in right ankle. Injury Description: Laceration sustained to upper lip is 0.5 to 2.5 cm long, not bleeding, a small amount of bleeding noted at this time. 05:36 Reassessment: Patient appears in no apparent distress at this time. Patient and/or jd3 family updated on plan of care and expected duration. Pain level reassessed. Patient is alert, oriented x 3, equal unlabored respirations, skin warm/dry/pink. Vital Signs: 04:32 BP 125 / 96; Pulse 109; Resp 19 S; Temp 99.2(O); Pulse Ox 98% on R/A; Weight 106.59 kg cc3 (R); Height 5 ft. 7 in. (170.18 cm) (R); Pain 7/10; 05:38 BP 118 / 69; Pulse 92; Resp 16 S; Pulse Ox 97% on R/A; jd3 04:32 Body Mass Index 36.81 (106.59 kg, 170.18 cm) cc3 [place] Coma Score: 04:32 Eye Response: spontaneous(4). Verbal Response: oriented(5). Motor Response: obeys cc3 commands(6). Total: 15. Trauma Score (Adult): 04:32 Eye Response: spontaneous(1); Verbal Response: oriented(1); Motor Response: obeys cc3 commands(2); Systolic BP: > 89 mm Hg(4); Respiratory Rate: 10 to 29 per min(4); [place] Score: 15; Trauma Score: 12 ED Course: 04:29 Patient arrived in ED. am2 04:32 Arm band placed on right wrist. Patient notified of wait time. cc3 04:32 Patient has correct armband on for positive identification. Bed in low position. Call cc3 light in reach. Side rails up X 1. Pulse ox on. NIBP on. 04:33 Randy Washington MD is Attending Physician. [facility] 04:[address] RN is Primary Nurse. jd3 04:42 Triage completed. jd3 05:26 XRAY Ankle RIGHT 3 view In Process Unspecified. EDMS 05:26 Tib Fib Right XRAY In Process Unspecified. EDMS 05:26 Foot Right 3 View XRAY In Process Unspecified. EDMS 05:36 Assist provider with laceration repair on upper lip and left corner of mouth that was jd3 2.5 cm. or less using sutures. Set up tray. Performed by Randy Washington MD Dressed with Neosporin, Patient tolerated well. 05:39 Walter Kern MD is Referral Physician. marcus 05:55 ortho boot to right ankle. jd3 05:58 Patient did not have IV access during this emergency room visit. jd3 Administered Medications: 05:07 Not Given (Physician Discretion): Tetanus-Diphtheria Toxoid Adult 0.5 ml IM once jd3 05:35 Drug: Lidocaine (1 %) 5 ml Volume: 5 ml; Route: Infiltration; jd3 05:52 Follow up: Response: No adverse reaction jd3 05:51 Drug: Augmentin 875 mg Route: PO; jd3 05:52 Follow up: Response: Medication administered at discharge. jd3 Outcome: 05:40 Discharge ordered by . marcus 05:57 Discharged to home ambulatory, with family. jd3 05:57 Condition: stable 05:57 Discharge instructions given to patient, family, Instructed on discharge instructions, follow up and referral plans. medication usage, Demonstrated understanding of instructions, follow-up care, medications, Prescriptions given X 2. 05:59 Patient left the ED. jd3 Signatures: Dispatcher [employer] Randy Hubbard MD MD cha Moreno, Amanda am2 Jason Lane RN RN j Milly Hargrove cc3 Corrections: (The following items were deleted from the chart) 05:57 05:36 Assist provider with laceration repair on upper lip and left corner of mouth that jd3 was 2.5 cm. or less using sutures. Set up tray. Performed by Randy Washington MD Dressed with Neosporin, Patient tolerated well. jd3
[2018-05-30] MEDS ORDERED: AMOX/K CLAV 875 MG TAB ONE (06:00)
--- NOTE | 2018-05-30 08:33 | RAD REPORT ---
EXAM DESCRIPTION: RAD - Ankle Right 3 View - 05/30/2018 5:25 am CLINICAL HISTORY: Right ankle pain status post fall FINDINGS: No fracture or dislocation is seen.
--- NOTE | 2018-05-30 08:34 | RAD REPORT ---
EXAM DESCRIPTION: RAD - Tib Fib Right - 05/30/2018 5:25 am CLINICAL HISTORY: Right leg pain status post fall FINDINGS: No fracture is seen
--- NOTE | 2018-05-30 08:36 | RAD REPORT ---
EXAM DESCRIPTION: RAD - Foot Right 3 View - 05/30/2018 5:25 am CLINICAL HISTORY: Right foot pain status post injury FINDINGS: No fracture or dislocation is seen
== END 2018-05-30 05:59 | disposition home or self-care (01) ==
LOC: ER 04:28
PROC: 0JQ10ZZ Repair Face Subcutaneous Tissue and Fascia, Open Approach (ICD-10-PCS; principal; 2018-05-30)
DX: S01.81XA Laceration without foreign body of other part of head, initial encounter (principal); S93.401A Sprain of unspecified ligament of right ankle, initial encounter; S93.601A Unspecified sprain of right foot, initial encounter; W19.XXXA Unspecified fall, initial encounter; Y93.89 Activity, other specified; Y92.007 Garden or yard of unspecified non-institutional (private) residence as the place of occurrence of the external cause; Z23 Encounter for immunization; Z72.0 Tobacco use; K21.9 Gastro-esophageal reflux disease without esophagitis
CPT/HCPCS: 99284

== ENCOUNTER 2019-05-01 13:54 | Emergency (ER) | payer SELFPAY ==
[2019-05-01] MEDS ORDERED: MECLIZINE HCL 12.5 MG TAB ONE (14:49)
--- NOTE | 2019-05-01 15:03 | RAD REPORT ---
EXAM DESCRIPTION: CT - Head Brain Wo Cont - 05/01/2019 2:56 pm CLINICAL HISTORY: DIZZINESS Headache, drowsiness COMPARISON: <Comparisons> TECHNIQUE: All CT scans are performed using dose optimization technique as appropriate and may inclu de automated exposure control or mA/KV adjustment according to patient size. FINDINGS: No intracranial hemorrhage, hydrocephalus or extra-axial fluid collection.No areas of brai n edema or evidence of midline shift. The paranasal sinuses and mastoids are clear. The calvarium is intact. IMPRESSION: No acute intracranial abnormality.
--- NOTE | 2019-05-01 15:35 | EDPHYS ---
Physician Documentation [facility] Name: Young Hernandez Jr Age: 29 yrs Sex: Male : 1990 Arrival Date: 05/01/2019 Time: 13:58 Bed 27 Private MD: ED Physician Randy Washington HPI: 05/01 14:44 This 29 yrs old Male presents to ER via Ambulatory with complaints of marcus Dizziness. 14:44 The patient presents with dizziness. Onset: The symptoms/episode began/occurred 14 marcus day(s) ago. Context: occurred at home. Modifying factors: The symptoms are alleviated by holding head still, the symptoms are aggravated by movement of head. Associated signs and symptoms: The patient has no apparent associated signs or symptoms. Patient's baseline: Neuro: alert and fully oriented. The patient has not experienced similar symptoms in the past. Historical: - Allergies: 14:17 No Known Allergies; hb - Home Meds: 14:17 None [Active]; hb - PMHx: 14:17 Arthritis; GERD; hb - PSHx: 14:17 right wrist; hb - Immunization history:: Adult Immunizations up to date. - Coronavirus screen:: The patient has NOT traveled to [place], [place], or [place] in the past 14 days. The patient has NOT had contact with known/suspected case of Coronavirus? Proceed with normal triage procedures. - Social history:: Smoking status: Patient reports the use of cigarette tobacco products, denies chronic smoking, but will smoke occasionally. - Family history:: not pertinent. - Ebola Screening: : No symptoms or risks identified at this time. ROS: 14:44 Constitutional: Negative for fever, chills, and weight loss, Eyes: Negative for injury, marcus pain, redness, and discharge, ENT: Negative for injury, pain, and discharge, Neck: Negative for injury, pain, and swelling, Cardiovascular: Negative for chest pain, palpitations, and edema, Respiratory: Negative for shortness of breath, cough, wheezing, and pleuritic chest pain, Abdomen/GI: Negative for abdominal pain, nausea, vomiting, diarrhea, and constipation, Back: Negative for injury and pain, : Negative for injury, bleeding, discharge, and swelling, MS/Extremity: Negative for injury and deformity, Skin: Negative for injury, rash, and discoloration, Psych: Negative for depression, anxiety, suicide ideation, homicidal ideation, and hallucinations, Allergy/Immunology: Negative for hives, rash, and allergies, Endocrine: Negative for neck swelling, polydipsia, polyuria, polyphagia, and marked weight changes, Hematologic/Lymphatic: Negative for swollen nodes, abnormal bleeding, and unusual bruising. 14:44 Neuro: Positive for dizziness. Exam: 14:45 Constitutional: This is a well developed, well nourished patient who is awake, alert, marcus and in no acute distress. Head/Face: Normocephalic, atraumatic. Eyes: Pupils equal round and reactive to light, extra-ocular motions intact. Lids and lashes normal. Conjunctiva and sclera are non-icteric and not injected. Cornea within normal limits. Periorbital areas with no swelling, redness, or edema. ENT: Nares patent. No nasal discharge, no septal abnormalities noted. Tympanic membranes are normal and external auditory canals are clear. Oropharynx with no redness, swelling, or masses, exudates, or evidence of obstruction, uvula midline. Mucous membranes moist. Neck: Trachea midline, no thyromegaly or masses palpated, and no cervical lymphadenopathy. Supple, full range of motion without nuchal rigidity, or vertebral point tenderness. No Meningismus. Chest/axilla: Normal chest wall appearance and motion. Nontender with no deformity. No lesions are appreciated. Cardiovascular: Regular rate and rhythm with a normal S1 and S2. No gallops, murmurs, or rubs. Normal PMI, no JVD. No pulse deficits. Respiratory: Lungs have equal breath sounds bilaterally, clear to auscultation and percussion. No rales, rhonchi or wheezes noted. No increased work of breathing, no retractions or nasal flaring. Abdomen/GI: Soft, non-tender, with normal bowel sounds. No distension or tympany. No guarding or rebound. No evidence of tenderness throughout. Back: No spinal tenderness. No costovertebral tenderness. Full range of motion. Male : Normal genitalia with no discharge or lesions. Skin: Warm, dry with normal turgor. Normal color with no rashes, no lesions, and no evidence of cellulitis. MS/ Extremity: Pulses equal, no cyanosis. Neurovascular intact. Full, normal range of motion. Neuro: Awake and alert, GCS 15, oriented to person, place, time, and situation. Cranial nerves II-XII grossly intact. Motor strength 5/5 in all extremities. Sensory grossly intact. Cerebellar exam normal. Normal gait. Psych: Awake, alert, with orientation to person, place and time. Behavior, mood, and affect are within normal limits. Vital Signs: 14:17 BP 151 / 95; Pulse 86; Resp 16; Temp 98.2; Pulse Ox 99% ; Weight 104.33 kg; Height 5 hb ft. 7 in. (170.18 cm); Pain 0/10; 15:15 BP 138 / 88; Pulse 84; Resp 18; Pulse Ox 99% ; wh 14:17 Body Mass Index 36.02 (104.33 kg, 170.18 cm) MDM: 14:21 Patient medically screened. [facility] 14:45 Data reviewed: vital signs, nurses notes, radiologic studies, CT scan. [facility] 05/01 14:44 Order name: CT Head Brain wo Cont; Complete Time: 15:35 [facility] Administered Medications: 14:48 Drug: Meclizine 25 mg Route: PO; 15:37 Follow up: Response: No adverse reaction [facility] 15:51 Follow up: Response: No adverse reaction Disposition: 05/01/19 15:35 Discharged to Home. Impression: Dizziness and giddiness. - Condition is Stable. - Discharge Instructions: Dizziness, Post-Concussion Syndrome, Post-Concussion Syndrome, [id number], Dizziness, [id number]. - Prescriptions for Meclizine 25 mg Oral Tablet - take 1 tablet by ORAL route every 8 hours As needed; 30 tablet. - Medication Reconciliation Form, Thank You Letter, Antibiotic Education, Prescription Opioid Use, Work release form form. - Follow up: Private Physician; When: 2 - 3 days; Reason: Recheck today's complaints, Continuance of care, Re-evaluation by your physician. Follow up: Fer Pack; When: 2 - 3 days; Reason: Recheck today's complaints, Re-evaluation by your physician. - Problem is new. - Symptoms have improved. Signatures: Dispatcher [employer] EDMS Randy Washington MD MD cha Baxter, Heather, RN RN Christi Hill Jonny Houston RN mg2 Corrections: (The following items were deleted from the chart) 15:51 15:35 05/01/2019 15:35 Discharged to Home. Impression: Dizziness and giddiness. wh Condition is Stable. Discharge Instructions: Dizziness, Post-Concussion Syndrome, Post-Concussion Syndrome, [id number], Dizziness, [id number]. Prescriptions for Meclizine 25 mg Oral Tablet - take 1 tablet by ORAL route every 8 hours As needed; 30 tablet. and Forms are Medication Reconciliation Form, Thank You Letter, Antibiotic Education, Prescription Opioid Use. Follow up: Private Physician; When: 2 - 3 days; Reason: Recheck today's complaints, Continuance of care, Re-evaluation by your physician. Follow up: Fer Pack; When: 2 - 3 days; Reason: Recheck today's complaints, Re-evaluation by your physician. Problem is new. Symptoms have improved. marcus
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
[2019-05-01 16:21] VITALS: TEMP 98.2; O2SAT 99
[2019-05-01 16:22] VITALS: BP 138/88
== END 2019-05-01 15:51 | disposition home or self-care (01) ==
LOC: ER 13:54
DX: R42 Dizziness and giddiness (principal); Z72.0 Tobacco use
CPT/HCPCS: 70450; 99284; J8597

== ENCOUNTER 2019-05-30 12:59 | Emergency (ER) | payer SELFPAY ==
--- NOTE | 2019-05-30 14:01 | ER ---
Nurse's Notes [facility] Name: Young Hernandez Jr Age: 29 yrs Sex: Male : 1990 Arrival Date: 05/30/2019 Time: 13:01 Bed 7 Private MD: Diagnosis: Dizziness and giddiness Presentation: 05/29 13:16 Chief complaint: Patient states: still gets dizziness, was seen here a month ago and iw was prescribed medication but still having symptoms. Coronavirus screen: The patient has NOT traveled to [place] in the past 14 days. Proceed with normal triage procedures. Ebola Screen: Patient negative for fever greater than or equal to 101.5 degrees Fahrenheit, and additional compatible Ebola Virus Disease symptoms Patient denies exposure to infectious person. Patient denies travel to an Ebola-affected area in the 21 days before illness onset. No symptoms or risks identified at this time. Initial Sepsis Screen: Does the patient meet any 2 criteria? No. Patient's initial sepsis screen is negative. Does the patient have a suspected source of infection? No. Patient's initial sepsis screen is negative. Risk Assessment: Do you want to hurt yourself or someone else? Patient reports no desire to harm self or others. 13:16 Method Of Arrival: Ambulatory iw 13:16 Acuity: MARELY 3 iw 14:05 Onset of symptoms was May 30, 2019. iw Historical: - Allergies: 13:17 No Known Allergies; iw - PMHx: 13:17 Arthritis; GERD; iw - PSHx: 13:17 right wrist; iw - Immunization history:: Adult Immunizations not up to date. - Social history:: Smoking status: Patient reports the use of cigarette tobacco products, denies chronic smoking, but will smoke occasionally. Screenin:01 Abuse screen: Denies threats or abuse. Denies injuries from another. Nutritional iw screening: No deficits noted. Tuberculosis screening: No symptoms or risk factors identified. Fall Risk None identified. Assessment: 14:01 General: Appears in no apparent distress. Behavior is calm, cooperative. Pain: Denies iw pain. Neuro: Level of Consciousness is awake, alert, obeys commands, Oriented to person, place, time, situation, Moves all extremities. Full function. Cardiovascular: Capillary refill < 3 seconds in bilateral fingers Patient's skin is warm and dry. Respiratory: Respiratory effort is even, unlabored, Respiratory pattern is regular, symmetrical. GI: No signs and/or symptoms were reported involving the gastrointestinal system. Derm: Skin is intact, is healthy with good turgor. Musculoskeletal: Range of motion: intact in all extremities. Vital Signs: 13:16 BP 138 / 89; Pulse 110; Resp 16; Pulse Ox 98% ; Weight 104.33 kg; Height 5 ft. 7 in. iw (170.18 cm); 13:16 Body Mass Index 36.02 (104.33 kg, 170.18 cm) iw ED Course: 13:01 Patient arrived in ED. as 13:17 Triage completed. iw 13:18 Arm band placed on. iw 13:43 Skinny eRid NP is PHCP. pm1 13:43 Randy Washington MD is Attending Physician. pm1 14:01 Emily Jennings, RN is Primary Nurse. iw 14:02 Patient has correct armband on for positive identification. iw 14:06 No provider procedures requiring assistance completed. Patient did not have IV access iw during this emergency room visit. Administered Medications: No medications were administered Outcome: 14:00 Discharge ordered by . pm1 14:06 Discharged to home ambulatory, with family. iw 14:06 Condition: good 14:06 Discharge instructions given to patient, family, Instructed on discharge instructions, follow up and referral plans. Demonstrated understanding of instructions, follow-up care. 14:07 Patient left the ED. iw Signatures: Alis Barnard as Emily Jennings, PRASHANTH RN iw Skinny Reid NP [employer]OCIATE [employer]ORY pm1
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
[2019-05-30 14:25] VITALS: BP 138/89; O2SAT 98
== END 2019-05-30 14:07 | disposition home or self-care (01) ==
LOC: ER 12:59
DX: R42 Dizziness and giddiness (principal)
CPT/HCPCS: 99281